=== PATIENT | female | born 1975 | race Asian ===

== ENCOUNTER → 2016-06-10 | Outpatient (CLI) | payer OTHER ==
[~2016-06-10] MED LIST: ACET-749 PO; FERR325T51; MTR600X PO; PRENTAB69 PO
--- NOTE | 2016-06-10 16:14 | MAMMOGRAPHY REPORT ---
UNILATERAL RIGHT DIGITAL DIAGNOSTIC MAMMOGRAM TOMOSYNTHESIS WITH CAD AND TARGETED RIGHT ULTRASOUND: 06/10/2016 CLINICAL HISTORY: 40 year-old woman presents with focal pain in the 7:00 through 9:00 periareolar ri ght breast that is worst on palpation. No skin changes, palpable mass or nipple discharge. TECHNIQUE: Right breast tomosynthesis in addition to standard 2D mammography was performed. Current study was also evaluated with a Computer Aided Detection (CAD) system. COMPARISON: Comparison is made to exams dated: 08/21/2015 mammogram, 09/13/2015 ultrasound, and 09/13/19 16 mammogram - [facility]. BREAST COMPOSITION: The tissue of the right breast is heterogeneously dense, which may obscure smal l masses. FINDINGS: A triangular skin palpable marker overlies the lower outer anterior right breast, denoting the area of pain pointed out by the patient. There are scattered round and punctate benign-appeari ng microcalcifications diffusely throughout the right breast, similar in appearance as on the 2015 mammogram. No obvious new mass, architectural distortion, developing asymmetry or new cluster of microcalcifications is seen. Real-time high-resolution sonographic evaluation was performed in the area of pain pointed out by th e patient. There is dense fibroglandular tissue and interspersed milk ducts in the 7:00 periareolar , 8:00 periareolar and 9:00 periareolar right breast, in the area of concern pointed out by the marva ent. No discrete solid or cystic mass is seen. IMPRESSION: ACR BI-RADS CATEGORY 2: BENIGN, TARGETED ULTRASOUND ACR BI-RADS CATEGORY 2: BENIGN Stable mammographic appearance of the right breast. No mammographic or targeted sonographic evidenc e of malignancy in the area of focal pain with palpation in the lower outer periareolar right breast . Therefore, clinical follow-up is recommended, as biopsy of a clinically suspicious mass should no t be precluded by negative imaging. Otherwise recommend return to annual screening mammography blanca zacarias. The patient is due in August 2016. Approximately 10% of breast cancers are not detected with mammography. A negative mammographic repor t should not delay biopsy if a clinically suggestive mass is present. Rosa Asif M.D. ay/:06/10/2016 15:00:44 Wastewater Project Manager: Kalee COLEMAN(Edmundo)(M), [facility] letter sent: Normal 05/11 BI-RADS Code: ACR BI-RADS Category 2: Benign Ultrasound BI-RADS: ACR BI-RADS Category 2: Benign
== END | disposition home or self-care (01) ==
LOC: C.MAMM 13:41
PROVIDERS: ATTEND Obstetrics & Gynecology
DX: N64.4 Mastodynia (principal)

== ENCOUNTER → 2017-01-25 | Outpatient (CLI) | payer OTHER ==
[2017-01-25 11:14] LABS: BLOOD UREA NITROGEN 11 mg/dl (7-18); BUN/CREATININE RATIO 13.9 (10-20); CALCIUM 9.3 mg/dl (8.5-10.1); CARBON DIOXIDE 29 mmol/L (21-32); CHLORIDE 102 mmol/L (98-107); CHOLESTEROL 153 mg/dl (0-200); CREATININE 0.77 mg/dl (0.60-1.20); GLUCOSE 84 mg/dl (70-99); POTASSIUM 3.5 mmol/L (3.5-5.1); SODIUM 138 mmol/L (136-145); TRIGLYCERIDES 78 mg/dl (0-150); VERY LOW DENSITY LIPOPROT CALC 16 mg/dl
[2017-01-25 11:24] LABS: CHOLESTEROL/HDL RATIO 2.5; HDL CHOLESTEROL 61 mg/dl; LDL CHOLESTEROL CALCULATED 76 mg/dl
== END | disposition home or self-care (01) ==
LOC: C.LAB1850 09:51
PROVIDERS: ATTEND Internal Medicine
DX: G62.9 Polyneuropathy, unspecified (principal)

== ENCOUNTER → 2017-01-25 | Outpatient (CLI) | payer OTHER ==
--- NOTE | 2017-01-26 13:03 | MAMMOGRAPHY REPORT ---
BILATERAL DIGITAL SCREENING MAMMOGRAM TOMOSYNTHESIS WITH CAD: 01/25/2017 CLINICAL HISTORY: Routine screening. Patient has no complaints. TECHNIQUE: Bilateral breast tomosynthesis in addition to standard 2D mammography was performed. Curre nt study was also evaluated with a Computer Aided Detection (CAD) system. COMPARISON: Comparison is made to exams dated: 06/10/2016 ultrasound, 06/10/2016 mammogram, 09/13/2015 [place] mogram, 09/13/2015 ultrasound, and 08/21/2015 mammogram - [facility]. BREAST COMPOSITION: The tissue of both breasts is heterogeneously dense, which may obscure small mas ses. FINDINGS: There is a newly visualized 7 mm nodular asymmetry in the subareolar right breast, only se en on the MLO view, for which additional spot compression tomosynthesis views and possible ultrasound are recommended, with nipples in profile. There are scattered bilateral benign-appearing microcalcifications. No other suspicious mass, tashi ectural distortion or cluster of microcalcifications is seen. IMPRESSION: ACR BI-RADS CATEGORY 0: INCOMPLETE EVALUATION: NEED ADDITIONAL IMAGING EVALUATION The newly visualized 7 mm nodular asymmetry in the subareolar right breast on the MLO view needs jazmin tional evaluation. Additional imaging should be performed with nipples in profile. The patient will be called to schedule an appointment. Approximately 10% of breast cancers are not detected with mammography. A negative mammographic report should not delay biopsy if a clinically suggestive mass is present. Rosa Asif M.D. ay/:01/25/2017 16:21:52 Weight Control Lecturer: Kalee COLEMAN(R)(M), [facility] letter sent: Addl Imaging 0 BI-RADS Code: ACR BI-RADS Category 0: Incomplete Evaluation: Need Additional Imaging Evaluation
== END | disposition home or self-care (01) ==
LOC: C.MAMM 13:09
PROVIDERS: ATTEND Obstetrics & Gynecology
DX: Z12.31 Encounter for screening mammogram for malignant neoplasm of breast (principal); N64.89 Other specified disorders of breast

== ENCOUNTER → 2017-03-26 | Outpatient (CLI) | payer OTHER ==
--- NOTE | 2017-03-26 15:38 | MAMMOGRAPHY REPORT ---
UNILATERAL RIGHT DIGITAL DIAGNOSTIC MAMMOGRAM TOMOSYNTHESIS AND TARGETED RIGHT ULTRASOUND: 03/26/2017 CLINICAL HISTORY: Callback from screening mammogram for right breast asymmetry. TECHNIQUE: Breast tomosynthesis in addition to standard 2D mammography was performed. Spot compress ion right CC and MLO 2-D and tomosynthesis images were obtained. COMPARISON: Comparison is made to exams dated: 06/10/2016 ultrasound, 01/25/2017 mammogram, 06/10/2016 ma mmogram, 09/13/2015 mammogram, 09/13/2015 ultrasound, and 08/21/2015 mammogram - [facility]. BREAST COMPOSITION: The tissue of the right breast is heterogeneously dense, which may obscure small masses. FINDINGS: Spot compression views demonstrate a persistent round 9 mm mass within the right subareolar breast, only well seen on the MLO tomosynthesis images but possibly projecting medially on the cc im ages. Targeted ultrasound was performed of the right subareolar breast in the region of the mammographic ma ss. In the right 3:00 subareolar breast, there is an intraductal hypoechoic mass which measures 6 x 4 x 6 mm. This corresponds with the mammographic mass and is indeterminant, with differential includ ing a papilloma or possibly intraductal debris. The patient denies any nipple discharge. Recommend ultrasound guided core needle biopsy for further evaluation. IMPRESSION: ACR BI-RADS CATEGORY 4: SUSPICIOUS, TARGETED ULTRASOUND ACR BI-RADS CATEGORY 4: SUSPICIO US Hypoechoic 6 mm intraductal mass in the right 3:00 subareolar breast is indeterminant and ultrasound guided core needle biopsy is recommended for further evaluation. A phone call was made to the physician's office to confirm faxed results were received. The patient has been verbally notified of the results. She tentatively scheduled the biopsy before leaving the [facility]. Approximately 10% of breast cancers are not detected with mammography. A negative mammographic report should not delay biopsy if a clinically suggestive mass is present. Qing Moncada M.D. /:03/26/2017 10:31:09 Baseball Inspector And Repairer: Luz ROSE)(Marleen), [facility] letter sent: Abnormal 4/5 BI-RADS Code: ACR BI-RADS Category 4: Suspicious Ultrasound BI-RADS: ACR BI-RADS Category 4: Suspici ous
== END | disposition home or self-care (01) ==
LOC: C.MAMM 09:44
PROVIDERS: ATTEND Obstetrics & Gynecology
DX: N63.10 Unspecified lump in the right breast, unspecified quadrant (principal)

== ENCOUNTER → 2017-04-05 | Outpatient (CLI) | payer OTHER ==
--- NOTE | 2017-04-05 10:41 | Discharge Instructions ---
Discharge Instructions Procedure Procedure Date: Apr 05, 2017. Reason for visit: R Mass. Discharge Discharge Date: Apr 05, 2017. Discharge Diagnosis: post right breast ultrasound guided core biopsy Instructions Activity Recommendations: Additional Limitations (see below) Return to School/Work: no limitations Recommended Home Diet: No Limitations Provider Instructions: ACTIVITY RECOMMENDATIONS: * No lifting, pushing, pulling or exercising the affected side for three days. RETURN TO SCHOOL/WORK: * You may return to work/school after the procedure, but do not perform any strenuous activities for 24 to 48 hours. MEDICATIONS: * Tylenol (two 325 mg) every four to six hours if needed for mild pain (if not allergic to Tylenol). DIET: * Resume previous diet. SPECIAL CARE INSTRUCTIONS: * Keep biopsy site dry for 24 hours. May shower after 24 hours, but do not soak (bathe) incision. * May remove Tegaderm (plastic patch) tomorrow AFTER showering. * Leave the steri-strips on for one week. Allow the steri-strips to fall off by themselves. If not off after one week, you may remove them. You may place a Bandaid crosswise over the strips, if desired. * Apply ice 10 minutes on and 10 minutes off as needed. * Wear a bra at bedtime to sleep more comfortably for 2-3 days. * Your referring physician should have the results after approximately 5 to 7 business days. * Call for unusual bleeding, fever, drainage, etc or if you have any questions call [phone] during normal business hours or after hours call Dr Asif, . FOLLOW UP VISIT: Follow-up with Referring Physician as scheduled. Allergies Coded Allergies: No Known Allergies (Unverified , NONE, 06/07/13) Xochitl Fried Recommendations: Call your doctor if: * Temperature above 101 degrees * Pain not relieved by pain medicine ordered * There is increased drainage or redness from any incision * You have any unanswered questions or concerns. Your Doctors Instructions noted above were prepared by provider Rosa Asif. Patient Signature Section: Patient Instructions Signature Page Eleazar Velazquez Patient (or Guardian) Signature/Date: I have read and understand the instructions given to me by my caregivers. Caregiver/RN/Doctor Signature/Date: The above-named patient and/or guardian has received patient instructions on this date. + Original Patient Signature Page (only) stays with chart. Please make copy for patient.
--- NOTE | 2017-04-05 15:12 | MAMMOGRAPHY REPORT ---
ULTRASOUND GUIDED BIOPSY RIGHT BREAST: 04/05/2017 CLINICAL HISTORY: Indeterminate 5 mm hypoechoic mass in the 3:00 subareolar right breast. Patient pr esents for ultrasound-guided core biopsy. COMPARISON: Comparison is made to exams dated: 03/26/2017 mammogram, 03/26/2017 ultrasound, 7 mammogram, 06/10/2016 ultrasound, 06/10/2016 mammogram, and 09/13/2015 mammogram - [facility]. PATIENT CONSENT: The procedure, risks and benefits were discussed with the patient and informed conse nt was obtained both verbally and in writing. Specific risks to this procedure include: bleeding, in fection, puncture of adjacent structure, nontarget biopsy, sampling error, pain, metal allergy and me dication reaction. PROCEDURE DESCRIPTION: A time out was performed and the right breast was agreed as the site of biopsy . The skin was prepped and draped in the usual sterile fashion. The 5 mm hypoechoic possible intraduc rolando mass in the 3:00 subareolar right breast was chosen as the target for biopsy. Subcutaneous and in traparenchymal 1% buffered lidocaine, without epinephrine, was administered as local anesthesia. A sk in incision was made. Through the incision, 3 samples were taken with a 14 gauge Achieve biopsy josé antonio ce. A ribbon shaped metallic marker was placed at the biopsy site. Hemostasis was achieved after manu al compression. The patient tolerated the procedure well and there was no immediate complication. Th e samples were sent to the pathology department in an appropriately labeled container. Postprocedure right CC and ML tomosynthesis images were obtained. A new ribbon-shaped biopsy marker clip is seen in the 3:00 subareolar right breast, at the site of ultrasound-guided core biopsy. No s ignificant postbiopsy hematoma is seen. IMPRESSION: ULTRASOUND GUIDED BIOPSY Status post ultrasound-guided core biopsy of a hypoechoic 5 mm mass in the superficial subareolar 3:0 0 right breast, with biopsy marker placed at the site. The patient will receive notification of the biopsy results from her referring physician. Rosa Asif M.D. ay/:04/05/2017 10:55:15 Creative Services Producer: Luz ROSE)(Marleen), [facility]
--- NOTE | 2017-04-05 15:13 | MAMMOGRAPHY REPORT ---
UNILATERAL RIGHT DIGITAL DIAGNOSTIC MAMMOGRAM TOMOSYNTHESIS: 04/05/2017 CLINICAL HISTORY: Status post ultrasound-guided core biopsy of a small, 5 mm hypoechoic mass in the 3 :00 periareolar/retroareolar right breast. Please refer to the report from right breast ultrasound guided core biopsy performed at the same time for full detail. IMPRESSION: POST PROCEDURE IMAGING FOR MARKER PLACEMENT Please refer to the report from right breast ultrasound guided core biopsy performed at the same time for full detail. Approximately 10% of breast cancers are not detected with mammography. A negative mammographic report should not delay biopsy if a clinically suggestive mass is present. Rosa Asif M.D. ay/:04/05/2017 10:40:46 Consumer Services Consultant: Luz COLEMAN(Edmundo)(Marleen), [facility] BI-RADS Code: Post Procedure Imaging For Marker Placement
== END | disposition home or self-care (01) ==
LOC: C.MAMM 09:47
PROVIDERS: ATTEND Obstetrics & Gynecology
DX: R92.8 Other abnormal and inconclusive findings on diagnostic imaging of breast (principal); N63.10 Unspecified lump in the right breast, unspecified quadrant